=== PATIENT | female | born 1995 | race Caucasian/White ===

== ENCOUNTER 2017-11-29 15:44 | Emergency (ER) | payer SELFPAY ==
[~2017-11-29] VITALS: Ht 160 cm; Wt 66.7 kg
[2017-11-29 15:50] VITALS: Ht 160 cm; Wt 66.7 kg
[2017-11-29 18:55] VITALS: BP 106/68
== END 2017-11-29 18:55 | disposition home or self-care (01) ==
LOC: ED 15:44
DX: N39.0 Urinary tract infection, site not specified (principal)